=== PATIENT | female | born 1970 | race Caucasian/White ===

== ENCOUNTER 2016-11-29 21:21 | Emergency (ER) | payer OTHER ==
[~2016-11-29] VITALS: Ht 165.1 cm; Wt 80.0 kg
[2016-11-29 22:05] VITALS: BP 120/73; PULSE 112; RESP 16; O2SAT 100
[2016-11-29] MEDS ORDERED: BENADRYL (22:15)
[2016-11-29] MEDS ORDERED: TRAZ50TA12 PO (22:15)
[2016-11-29] MEDS ORDERED: PRAV10TA PO (22:15)
[2016-11-29] MEDS ORDERED: STRA80CA PO (22:15)
[2016-11-29] MEDS ORDERED: OMEP20TA PO (22:15)
--- NOTE | 2016-11-29 22:35 | PD ---
HPI Chief Complaint: Psychiatric Symptoms Time Seen by Provider: 22:31 Travel History International Travel<30 days: No Contact w/Intl Traveler<30days: No Traveled to known affect area: No History of Present Illness HPI 46-year-old female that presents to the ED for evaluation of suicidal ideation. Patient has a chronic history of depression and suicidal attempts in the past. Per patient she had trazodone today as well as alcohol and then she felt suicidal. Per patient she only took one pill and she did not do this to kill herself. Per patient she does feel suicidal this time. She denies any homicidal ideation. She states that she was prescribed trazodone by her doctor. She denies any falls or injuries. No chest pain or shortness of breath. No abdominal pain. Has not seen a psychiatrist in the area. She recently moved from [facility] to [place]. She was Thomas acted by police. On exam she is cooperative and she does not appear to be in acute distress. She does smell alcohol. She has been asked multiple times if she tried to OD on herself as she does have a history of this in the past and she completely denies this. PFSH Past Medical History ADHD: Yes Depression: Yes Heart Rhythm Problems: Yes (TACHYCARDIA) High Cholesterol: Yes Diminished Hearing: No ?: Not Social History Alcohol Use: Yes (OCCASIONALLY) Tobacco Use: No Substance Use: No Allergies-Medications (Allergen,Severity, Reaction): Coded Allergies: acetaminophen (Verified Allergy, Unknown, VOMITING, 11/29/16) codeine (Verified Allergy, Unknown, VOMITING, 11/29/16) hydrocodone (Verified Allergy, Unknown, VOMITING, 11/29/16) Reported Meds & Prescriptions Reported Meds & Active Scripts Active Reported [Benadryl] 50 Mg Pravastatin 10 Mg Tab Unknown Dose PO DAILY Omeprazole 20 Mg Tab 20 Mg PO BID Strattera (Atomoxetine) 80 Mg Cap 80 Mg PO DAILY Trazodone (Trazodone HCl) 50 Mg Tab 50 Mg PO HS Review of Systems Except as stated in HPI: all other systems reviewed are Neg Physical Exam Narrative GENERAL: SKIN: Warm and dry. HEAD: Atraumatic. Normocephalic. EYES: Pupils equal and round. No scleral icterus. No injection or drainage. ENT: No nasal bleeding or discharge. Mucous membranes pink and moist. Tongue is midline. No uvula deviation. NECK: Trachea midline. No JVD. CARDIOVASCULAR: Regular rate and rhythm. No murmurs, S3, S4. RESPIRATORY: No accessory muscle use. Clear to auscultation. Breath sounds equal bilaterally. GASTROINTESTINAL: Abdomen soft, non-tender, nondistended. Hepatic and splenic margins not palpable. MUSCULOSKELETAL: Extremities without clubbing, cyanosis, or edema. No obvious deformities. Full range of motion of the upper and lower extremities bilaterally. 2+ pulses bilaterally. NEUROLOGICAL: Awake and alert. No obvious cranial nerve deficits. Motor grossly within normal limits. Five out of 5 muscle strength in the arms and legs. Normal speech. PSYCHIATRIC: Appropriate mood and affect; insight and judgment normal. Data Data Last Documented VS Vital Signs Date Time Temp Pulse Resp B/P Pulse Ox O2 Delivery O2 Flow Rate FiO2 11/29/16 22:05 112 16 120/73 100 Orders Complete Blood Count With Diff (11/29/16 21:27) Comprehensive Metabolic Panel (11/29/16 21:27) Psych Screen (11/29/16 21:27) Drug Screen, Random Urine (11/29/16 21:27) Alcohol (Ethanol) (11/29/16 21:27) Salicylates (Aspirin) (11/29/16 21:27) Tylenol (Acetaminophen) (11/29/16 21:27) MDM Medical Decision Making Medical Screen Exam Complete: Yes Emergency Medical Condition: Yes Medical Record Reviewed: Yes Differential Diagnosis Depression versus suicidal ideation versus anxiety versus adjustment disorder versus mood disorder versus bipolar disorder versus schizophrenia versus paranoid disorder versus psychosis versus substance abuse versus alcohol abuse versus alcohol induced psychosis versus homicidality addition versus cutting versus personality disorder Narrative Course 46-year-old female that presents to the ED for evaluation of psych. Patient was properly examined and was found to have signs and symptoms consistent psychiatric illness. No sign of acute medical distress. Labs were drawn. Patient will be medically clear. Okay to be seen by psych. Mental health screening was discussed with the patient. Diagnosis Primary Impression: Suicidal ideation Heri Parr Nov 29, 2016 22:34
[2016-11-29 23:00] LABS: AUTOMATED NEUTROPHIL # 4.4 TH/MM3 (1.8-7.7); BASOPHIL % 0.6 % (0.0-2.0); EOSINOPHIL # 0.2 TH/MM3 (0-0.4); EOSINOPHIL % 2.6 % (0.0-4.0); HEMATOCRIT 34.3 % (35.0-46.0); HEMO FLAGS DIFF FINAL; LYMPH % 32.2 % (9.0-44.0); LYMPHOCYTE # 2.4 TH/MM3 (1.0-4.8); MEAN CELL VOLUME 83.1 FL (80.0-100.0); MEAN CORPUSCULAR HEMOGLOBIN 28.1 PG (27.0-34.0); MEAN CORPUSCULAR HGB CONC 33.8 % (32.0-36.0); MONO % 5.4 % (0.0-8.0); NEUT % 59.2 % (16.0-70.0); PLATELET COUNT 304 TH/MM3 (150-450); RED BLOOD COUNT 4.12 MIL/MM3 (4.00-5.30); RED CELL DISTRIBUTION WIDTH 14.5 % (11.6-17.2); WHITE BLOOD COUNT 7.4 TH/MM3 (4.0-11.0)
[2016-11-29 23:25] LABS: ANION GAP 9 MEQ/L (5-15); AST (GOT) 16 U/L (15-37); BICARBONATE 24.9 MEQ/L (21.0-32.0); BLOOD UREA NITROGEN 7 MG/DL (7-18); CHLORIDE 105 MEQ/L (98-107); GLOMERULAR FILTRATION RATE 96 ML/MIN (>89); SODIUM (NA) 139 MEQ/L (136-145)
[2016-11-29 23:28] LABS: ALKALINE PHOSPHATASE 97 U/L (45-117); ALT (GPT) 26 U/L (10-53); TOTAL BILIRUBIN ADULT 0.2 MG/DL (0.2-1.0)
[2016-11-29 23:34] LABS: ACETAMINOPHEN LESS THAN 2.0 MCG/ML (10.0-30.0); ALCOHOL 180 MG/DL (0-5)
--- NOTE | 2016-11-29 23:50 | PD ---
Physical Exam Time Seen by Provider: 23:48 Data Data Last Documented VS Vital Signs Date Time Temp Pulse Resp B/P Pulse Ox O2 Delivery O2 Flow Rate FiO2 11/29/16 22:05 112 16 120/73 100 Orders Complete Blood Count With Diff (11/29/16 21:27) Comprehensive Metabolic Panel (11/29/16 21:27) Psych Screen (11/29/16 21:27) Drug Screen, Random Urine (11/29/16 21:27) Alcohol (Ethanol) (11/29/16 21:27) Salicylates (Aspirin) (11/29/16 21:27) Tylenol (Acetaminophen) (11/29/16 21:27) Labs Laboratory Tests Test 11/29/16 11/29/16 22:00 22:15 Sodium Level 139 MEQ/L Potassium Level 3.0 MEQ/L Chloride Level 105 MEQ/L Carbon Dioxide Level 24.9 MEQ/L Anion Gap 9 MEQ/L Blood Urea Nitrogen 7 MG/DL Creatinine 0.66 MG/DL Estimat Glomerular Filtration 96 ML/MIN Rate Random Glucose 118 MG/DL Calcium Level 8.4 MG/DL Total Bilirubin 0.2 MG/DL Aspartate Amino Transf 16 U/L (AST/SGOT) Alanine Aminotransferase 26 U/L (ALT/SGPT) Alkaline Phosphatase 97 U/L Total Protein 7.7 GM/DL Albumin 4.1 GM/DL Acetaminophen Level LESS THAN 2.0 MCG/ML Ethyl Alcohol Level 180 MG/DL White Blood Count 7.4 TH/MM3 Red Blood Count 4.12 MIL/MM3 Hemoglobin 11.6 GM/DL Hematocrit 34.3 % Mean Corpuscular Volume 83.1 FL Mean Corpuscular Hemoglobin 28.1 PG Mean Corpuscular Hemoglobin 33.8 % Concent Red Cell Distribution Width 14.5 % Platelet Count 304 TH/MM3 Mean Platelet Volume 8.5 FL Neutrophils (%) (Auto) 59.2 % Lymphocytes (%) (Auto) 32.2 % Monocytes (%) (Auto) 5.4 % Eosinophils (%) (Auto) 2.6 % Basophils (%) (Auto) 0.6 % Neutrophils # (Auto) 4.4 TH/MM3 Lymphocytes # (Auto) 2.4 TH/MM3 Monocytes # (Auto) 0.4 TH/MM3 Eosinophils # (Auto) 0.2 TH/MM3 Basophils # (Auto) 0.0 TH/MM3 CBC Comment DIFF FINAL Differential Comment Salicylates Level LESS THAN 1.7 MG/DL Urine Opiates Screen NEG Urine Barbiturates Screen NEG Urine Amphetamines Screen NEG Urine Benzodiazepines Screen POS Urine Cocaine Screen NEG Urine Cannabinoids Screen NEG MDM Medical Record Reviewed: Yes Supervised Visit with JAIDEN: No Narrative Course This patient presents under a Thomas act, please see previous providers notes for complete history of present illness. I was asked to follow up on the lab work prior to medical clearance. The patient's potassium is slightly low at 3.0. She will be given oral potassium chloride. Drug screen is positive for benzodiazepines. Alcohol level is 180. The patient is medically cleared for psychiatric disposition. Diagnosis Primary Impression: Suicidal ideation Damian Moore Nov 29, 2016 23:50
[2016-11-30] MEDS ORDERED: POTASSIUM CHLORIDE 20 MEQ CONTROLLED RELEASE TAB PO ONE
[2016-11-30 01:02] VITALS: BP 128/81; PULSE 114; RESP 17; O2SAT 99
[2016-11-30] MEDS ORDERED: IBUPROFEN 400 MG TAB PO ONE (05:00)
[2016-11-30 05:17] VITALS: BP 120/76; PULSE 106; RESP 18; O2SAT 99
[2016-11-30 07:00] VITALS: RESP 16
--- NOTE | 2016-11-30 08:53 | PD ---
History of Present Illness Chief Complaint: Psychiatric Symptoms Time Seen by Provider: 08:45 Travel History International Travel<30 Days: No Contact w/Intl Traveler<30days: No Known affected area: No Legal Status Legal Status: Thomas Act Thomas Act Signed By: Brittanie Welch History of Present Illness: History of Present Illness 46-year-old female with no psychiatric history that presents to the ED under a Thomas Act initiated by BETTY for evaluation of suicidal ideation. The BA alleges that they were called to a residence in response to a suicdal person and that the patient reported having been drinking and that she took her prescribed medication but that she began to feel depressed and was having suicidal thoughts of cutting herself with a knife or taking pills. The patient alleges that she called the police after she took her prescribed Trazodone after she had " some drinks" and " I felt funny so I called the police because I felt scared".She denies that she was suicidal at the time. Patient arrived to ED with BAL of 180. EMR is reviewed. No previous contact with [facility] psychiatry dept. Patient is seen with nurse Judie. The patient is alert, oriented and clinically sober. She is calm and cooperative. Speech is clear and logical. She does not appear to be responding to internal stimuli. There is no thomas, hypomania and no subjective clinical indication that she is depressed. She denies any suicidal or homicidal ideation, intent or plan. She states that she had " between 6 to 7 shots with her and then took her medication. She denies that she drinks on a daily basis. PFSH Past Medical History ADHD: Yes Depression: Yes Heart Rhythm Problems: Yes (TACHYCARDIA) High Cholesterol: Yes Diminished Hearing: No ?: Not Psychiatric History Psychiatric History Hx Psychiatric Treatment: Attempted suicide x 2 in 2011. [facility] treatement in [place]. Stopped tx for some time and began tx this year and is on medication. History of Inpatient Treatment: Yes Guns or firearms in home: No (Deneis daily drinking.) Social History x 1 year. Has a 24 year old daughter. Works as a special needs instructor. Hx Alcohol Use: Yes (OCCASIONALLY) Hx Tobacco Use: No Hx Substance Use: No Hx of Substance Use Treatment: No Family Psychiatric History Mother , aunt, anxiety. Allergies-Medications (Allergen,Severity, Reaction): Coded Allergies: acetaminophen (Verified Allergy, Unknown, VOMITING, 11/29/16) codeine (Verified Allergy, Unknown, VOMITING, 11/29/16) hydrocodone (Verified Allergy, Unknown, VOMITING, 11/29/16) Reported Meds & Prescriptions Reported Meds & Active Scripts Active Reported [Benadryl] 50 Mg Pravastatin 10 Mg Tab Unknown Dose PO DAILY Omeprazole 20 Mg Tab 20 Mg PO BID Strattera (Atomoxetine) 80 Mg Cap 80 Mg PO DAILY Trazodone (Trazodone HCl) 50 Mg Tab 50 Mg PO HS Review of Systems Except as stated in HPI: all other systems reviewed are Neg Exam Alert: Yes [place]: Person (0x4) Mood: Calm Affect: Appropriate Speech: Clear, Logical Eye Contact: Normal Memory Intact: Comment (No impairment) Hallucinations: Other (Denies any) Delusions: No Suicidal: Ideation (Deneis any) Homicidal: Ideation (Denies) Insight/Judgement Fair. Not impaired. MDM Medical Decision Making Medical Record Reviewed: Yes Assessment/Plan 46-year-old female with no psychiatric history that presents to the ED under a Thomas Act initiated by BETTY for evaluation of suicidal ideation. The BA alleges that they were called to a residence in response to a suicdal person and that the patient reported having been drinking and that she took her prescribed medication but that she began to feel depressed and was having suicidal thoughts of cutting herself with a knife or taking pills. She denies that she took the Trazodone as a suicidal gesture and denies any suicidal or homicidal ideation, intent or plan. Lift BA. Does not meet criteria. Continue care with outpatient provider. Cleared for discharge from psychiatry. Orders Complete Blood Count With Diff (11/29/16 21:27) Comprehensive Metabolic Panel (11/29/16 21:27) Psych Screen (11/29/16 21:27) Drug Screen, Random Urine (11/29/16 21:27) Alcohol (Ethanol) (11/29/16 21:27) Salicylates (Aspirin) (11/29/16 21:27) Tylenol (Acetaminophen) (11/29/16 21:27) Potassium Chloride (Kcl) (11/30/16 00:00) Ibuprofen (Motrin) (11/30/16 05:00) Diet Regular Basic (11/30/16 Breakfast) Results Vital Signs Date Time Temp Pulse Resp B/P Pulse Ox O2 Delivery O2 Flow Rate FiO2 11/30/16 07:10 89 17 11/30/16 07:00 16 11/30/16 05:17 106 18 120/76 99 Room Air 11/30/16 01:02 114 17 128/81 99 Room Air 11/29/16 22:05 112 16 120/73 100 Laboratory Tests Test 11/29/16 11/29/16 22:00 22:15 Sodium Level 139 Potassium Level 3.0 Chloride Level 105 Carbon Dioxide Level 24.9 Anion Gap 9 Blood Urea Nitrogen 7 Creatinine 0.66 Estimat Glomerular Filtration 96 Rate Random Glucose 118 Calcium Level 8.4 Total Bilirubin 0.2 Aspartate Amino Transf 16 (AST/SGOT) Alanine Aminotransferase 26 (ALT/SGPT) Alkaline Phosphatase 97 Total Protein 7.7 Albumin 4.1 Acetaminophen Level LESS THAN 2.0 Ethyl Alcohol Level 180 White Blood Count 7.4 Red Blood Count 4.12 Hemoglobin 11.6 Hematocrit 34.3 Mean Corpuscular Volume 83.1 Mean Corpuscular Hemoglobin 28.1 Mean Corpuscular Hemoglobin 33.8 Concent Red Cell Distribution Width 14.5 Platelet Count 304 Mean Platelet Volume 8.5 Neutrophils (%) (Auto) 59.2 Lymphocytes (%) (Auto) 32.2 Monocytes (%) (Auto) 5.4 Eosinophils (%) (Auto) 2.6 Basophils (%) (Auto) 0.6 Neutrophils # (Auto) 4.4 Lymphocytes # (Auto) 2.4 Monocytes # (Auto) 0.4 Eosinophils # (Auto) 0.2 Basophils # (Auto) 0.0 CBC Comment DIFF FINAL Differential Comment Salicylates Level LESS THAN 1.7 Urine Opiates Screen NEG Urine Barbiturates Screen NEG Urine Amphetamines Screen NEG Urine Benzodiazepines Screen POS Urine Cocaine Screen NEG Urine Cannabinoids Screen NEG Diagnosis Primary Impression: Alcohol intoxication Ruled Out: Suicidal ideation Psychiatrically Cleared: Yes Med/ Other Pt Specific Info: No Change to Meds Disposition: 01 DISCHARGE HOME Condition: Stable Problem Qualifiers Primary Impression: Alcohol intoxication Qualified Code: F10.920 - Alcoholic intoxication without complication Marleny Villalobos [facility] Nov 30, 2016 08:53
[2016-11-30 09:37] VITALS: BP 122/77; TEMP 97.8
== END 2016-11-30 09:37 | disposition home or self-care (01) ==
LOC: NEDAMB 21:21 → NEPD 11-30 09:37
DX: F10.129 Alcohol abuse with intoxication, unspecified (principal)
CPT/HCPCS: 80053; 80307; 85025; 99283